=== PATIENT | male | born 1970 | race Caucasian/White ===

== ENCOUNTER 2022-11-25 23:57 | Emergency (ER) | payer OTHER ==
[2022-11-26 00:10] LABS: Arterial Blood Carboxyhemoglob 0.9 % (0-1.5); Blood O2 Saturation 87.8 % (92-98.5)
[2022-11-26 00:33] LABS: Absolute Lymphocytes (CBC) 2.4 K/uL (0.7-4.9); Lymphocytes % 40.1 % (15.3-44.8); MCV 86.4 fL (80-100); MPV 7.8 fL (7.6-11.3); RBC Red Blood Cell Count 4.86 M/uL (4.33-5.43)
[2022-11-26 00:49] LABS: Potassium 3.3 mmol/L (3.5-5.1); Troponin High Sensitivity 8.2 pg/mL (<58.9)
--- NOTE | 2022-11-26 02:01 | EDPHYS ---
Physician Documentation [facility] Name: Manoj Romano Age: 51 yrs Sex: Male : 1970 Arrival Date: 11/25/2022 Time: 23:59 Bed 4 Private MD: ED Physician Riley Brown HPI: 11/26 00:37 This 51 yrs old Male presents to ER via EMS with complaints of dyspnea. sp3 00:37 51-year-old male with a history of asthma presents to the ED via EMS for chief sp3 complaint difficulty breathing and possible allergic reaction. Patient states that he was having a normal day when he started having difficulty breathing self medicated with Benadryl. EMS arrived to find patient with 87% pulse oxygenation and started albuterol and Atrovent and also administered 125 mg of Solu-Medrol IV. Arrival to the ED patient had already presumably from the medication and room air pulse ox of 85%. She denies headache, URI symptoms, cough, chest pain, prolonged travel or immobilization, prior history of PE or DVT or hypercoagulable state, abdominal pain, nausea, vomiting, diarrhea, syncope, near syncope, rash, fever, or any other aspect of ROS at this time.. Historical: - Allergies: 00:10 No Known Allergies; bb - Home Meds: 00:10 Albuterol Inhl [Active]; bb - PMHx: 00:10 Asthma; bb - Immunization history:: Client reports having NOT received the Covid vaccine. - Social history:: Smoking status: Patient denies any tobacco usage or history of. ROS: 00:38 Constitutional: Negative for fever, chills, and weight loss, Eyes: Negative for injury, sp3 pain, redness, and discharge, Neck: Negative for injury, pain, and swelling, Abdomen/GI: Negative for abdominal pain, nausea, vomiting, diarrhea, and constipation, Back: Negative for injury and pain, MS/Extremity: Negative for injury and deformity, Skin: Negative for injury, rash, and discoloration, Neuro: Negative for headache, weakness, numbness, tingling, and seizure. 00:38 All other systems are negative. Exam: 00:39 Constitutional: This is a well developed, well nourished patient who is awake, alert, sp3 and in no acute distress. Head/Face: Normocephalic, atraumatic. Eyes: Pupils equal round and reactive to light, extra-ocular motions intact. Lids and lashes normal. Conjunctiva and sclera are non-icteric and not injected. Cornea within normal limits. Periorbital areas with no swelling, redness, or edema. ENT: Nares patent. No nasal discharge, no septal abnormalities noted. External auditory canals are clear. Oropharynx with no redness, swelling, or masses, exudates, or evidence of obstruction, uvula midline. Mucous membranes moist. Neck: Trachea midline, no thyromegaly or masses palpated, and no cervical lymphadenopathy. Supple, full range of motion without nuchal rigidity, or vertebral point tenderness. No Meningismus. Chest/axilla: Normal chest wall appearance and motion. Nontender with no deformity. No lesions are appreciated. Abdomen/GI: Soft, non-tender, with normal bowel sounds. No distension or tympany. No guarding or rebound. No evidence of tenderness throughout. Back: No spinal tenderness. No costovertebral tenderness. Full range of motion. Skin: Warm, dry with normal turgor. Normal color with no rashes, no lesions, and no evidence of cellulitis. MS/ Extremity: Pulses equal, no cyanosis. Neurovascular intact. Full, normal range of motion. Neuro: Awake and alert, GCS 15, oriented to person, place, time, and situation. Cranial nerves II-XII grossly intact. Motor strength 5/5 in all extremities. Sensory grossly intact. Cerebellar exam normal. Normal gait. Psych: Awake, alert, with orientation to person, place and time. Behavior, mood, and affect are within normal limits. 00:39 Cardiovascular: Rate: tachycardic. 00:39 Respiratory: Patient with good air movement and scattered wheezes.. 00:41 ECG was reviewed by the Attending Physician. EKG demonstrates sinus tachycardia at 110 sp3 bpm with normal intervals, normal QRS, normal axis, normal ST/T-segment without evidence of acute ischemia. Vital Signs: 00:05 BP 150 / 91; Pulse 111; Resp 20 S; Temp 98.9(O); Pulse Ox 86% on R/A; Weight 79.38 kg bb (R); Height 5 ft. 10 in. (177.80 cm) (R); Pain 0/10; 00:45 BP 136 / 84; Pulse 103; Resp 18; Pulse Ox 96% on 3 lpm NC; jb4 02:04 BP 134 / 92; Pulse 98; Resp 19; Pulse Ox 93% on R/A; jb4 00:05 Body Mass Index 25.11 (79.38 kg, 177.80 cm) bb MDM: 00:39 Data reviewed: vital signs, nurses notes, EMS record, lab test result(s), EKG, sp3 radiologic studies. ED course: 51-year-old with hypoxia and asthma. Differential diagnosis includes asthma attack, bronchitis, pneumonia, pulmonary embolism, among others. I am not suspicious for metabolic pathology causing A-a gradient. Initial arterial blood gas demonstrates 7.39/44/57 performed on 2 L nasal cannula after arrival. Will obtain laboratory values, CT scan of the chest with PE protocol, continued SAMANTHA treatment, oxygen treatment and general observation. Disposition pending patient course and reevaluation. Possible admission if oxygenation is not improved.. 01:58 ED course: Patient is feeling much improved. Heart rate is in the 95-100 range. Patient sp3 taken off of the nasal cannula oxygen and remains 93% on room air. Patient is not tachypneic and in no respiratory distress. I believe at this time patient had allergy induced asthma as opposed to histamine based allergic reaction and/or anaphylaxis. Patient is asking for EpiPen in case this happens again and he is not in range of hospital. Even though this is not true allergic reaction, I am not posted prescribing this prescription. We will also put patient on 5-day course of prednisone 40 mg daily. Patient has inhaler at home and I have counseled him on proper usage along with a spacer device. Also discussed with will be at home with the patient in case he deteriorates at home although this is very unlikely. Questions answered and patient is now ready for safe discharge.. 02:00 Patient medically screened. sp3 11/26 00:02 Order name: Basic Metabolic Panel sp3 11/26 00:02 Order name: CBC with Diff sp3 11/26 00:02 Order name: NT PRO-BNP sp3 11/26 00:02 Order name: Troponin HS sp3 11/26 00:02 Order name: ABG: VBG please sp3 11/26 00:03 Order name: ABG sp3 11/26 00:02 Order name: XRAY Chest (1 view) sp3 11/26 00:02 Order name: EKG; Complete Time: 00:03 sp3 11/26 00:13 Order name: CT Chest For PE Angio sp3 11/26 00:26 Order name: ABG Arterial Blood Gas; Complete Time: 01:46 EDMS 11/26 00:38 Order name: CBC with Automated Diff EDMS 11/26 00:49 Order name: Basic Metabolic Panel EDMS 11/26 00:49 Order name: Troponin High Sensitivity EDMS 11/26 00:49 Order name: NT PRO-BNP EDMS 11/26 00:02 Order name: Cardiac monitoring; Complete Time: 00:15 sp3 11/26 00:02 Order name: EKG - Nurse/Tech; Complete Time: 00:15 sp3 11/26 00:02 Order name: IV Saline Lock; Complete Time: 00:15 sp3 11/26 00:02 Order name: Labs collected and sent; Complete Time: 00:15 sp3 11/26 00:02 Order name: O2 Per Protocol; Complete Time: 00:15 sp3 11/26 00:02 Order name: O2 Sat Monitoring; Complete Time: 00:15 sp3 Administered Medications: No medications were administered Disposition Summary: 11/26/22 02:00 Discharge Ordered Location: Home sp3 Condition: Stable sp3 Diagnosis - ALLERGY INDUCED ASTHMA, HYPOXIA sp3 Followup: sp3 - With: Private Physician - When: Upon discharge from the Emergency Department - Reason: Continuance of care Discharge Instructions: - Discharge Summary Sheet sp3 - Asthma Attack Prevention, Adult sp3 Forms: - Medication Reconciliation Form sp3 - Thank You Letter sp3 - Antibiotic Education sp3 - Prescription Opioid Use sp3 Prescriptions: - Prednisone 20 mg Oral Tablet - take 2 tablets by ORAL route once daily for 5 days; 10 tablet; Refills: 0, sp3 Product Selection Permitted - epinephrine 0.3 mg/0.3 mL Injection auto-injector - inject 0.3 milliliter by INTRAMUSCULAR route one time as needed for sb4 anaphylaxis; 1 Dual Pack; Refills: 0, Product Selection Permitted - Albuterol Sulfate 2.5 mg /3 mL (0.083 %) Inhalation Solution for Nebulization - inhale 1 unit by NEBULIZATION route every 8 hours As needed; 1 box; Refills: 0, sp3 Product Selection Permitted Signatures: Dispatcher [employer] EDDonya Galveznda, RN RN bb Riley Brown, MD sp3
--- NOTE | 2022-11-26 02:01 | ER ---
Nurse's Notes [facility] Name: Manoj Romano Age: 51 yrs Sex: Male : 1970 Arrival Date: 11/25/2022 Time: 23:59 Bed 4 Private MD: Diagnosis: ALLERGY INDUCED ASTHMA, HYPOXIA Presentation: 11/26 00:05 Chief complaint: EMS states: they were toned out for report of pt with difficulty bb breathing and chest pain. Coronavirus screen: Client presents with at least one sign or symptom that may indicate coronavirus-19. Ebola Screen: No symptoms or risks identified at this time. Initial Sepsis Screen: Does the patient meet any 2 criteria? No. Patient's initial sepsis screen is negative. Does the patient have a suspected source of infection? No. Patient's initial sepsis screen is negative. Risk Assessment: Do you want to hurt yourself or someone else? Patient reports no desire to harm self or others. Onset of symptoms was November 26, 2022. 00:05 Method Of Arrival: EMS: [facility] bb 00:05 Acuity: OTONIEL 2 bb Historical: - Allergies: 00:10 No Known Allergies; bb - Home Meds: 00:10 Albuterol Inhl [Active]; bb - PMHx: 00:10 Asthma; bb - Immunization history:: Client reports having NOT received the Covid vaccine. - Social history:: Smoking status: Patient denies any tobacco usage or history of. Screenin:07 [facility] ED Fall Risk Assessment (Adult) History of falling in the last 3 months, jb4 including since admission No falls in past 3 months (0 pts) Confusion or Disorientation No (0 pts) Score/Fall Risk Level 0 - 2 = Low Risk Oriented to surroundings, Maintained a safe environment. Abuse screen: Denies threats or abuse. Nutritional screening: No deficits noted. Tuberculosis screening: No symptoms or risk factors identified. Assessment: 00:10 General: Appears in no apparent distress. uncomfortable, Behavior is calm, cooperative, jb4 appropriate for age. Pain: Complains of pain in chest and neck Pain does not radiate. Pain currently is 5 out of 10 on a pain scale. Quality of pain is described as Tightness. Neuro: Level of Consciousness is awake, alert, obeys commands, Oriented to person, place, time, situation. Cardiovascular: Heart tones S1 S2 present Patient's skin is warm and dry. Respiratory: Airway is patent Trachea midline Respiratory effort is even, labored, Breath sounds are clear in right upper lobe, left upper lobe, right middle lobe, right lower lobe, left posterior upper lobe, right posterior upper lobe, left posterior lower lobe, right posterior middle lobe and right posterior lower lobe Breath sounds with wheezes in left lower lobe. GI: No signs and/or symptoms were reported involving the gastrointestinal system. : No signs and/or symptoms were reported regarding the genitourinary system. EENT: No signs and/or symptoms were reported regarding the EENT system. Derm: Skin is intact, Skin is pink, warm \T\ dry. Musculoskeletal: Circulation, motion, and sensation intact. Range of motion: intact in all extremities. 00:59 Reassessment: Patient appears in no apparent distress at this time. Patient and/or jb4 family updated on plan of care and expected duration. Pain level reassessed. Patient is alert, oriented x 3, equal unlabored respirations, skin warm/dry/pink. Respiratory: Airway is patent Respiratory effort is even, unlabored, Breath sounds are clear bilaterally. 02:04 Reassessment: Patient appears in no apparent distress at this time. Patient and/or jb4 family updated on plan of care and expected duration. Pain level reassessed. Patient is alert, oriented x 3, equal unlabored respirations, skin warm/dry/pink. Vital Signs: 00:05 BP 150 / 91; Pulse 111; Resp 20 S; Temp 98.9(O); Pulse Ox 86% on R/A; Weight 79.38 kg bb (R); Height 5 ft. 10 in. (177.80 cm) (R); Pain 0/10; 00:45 BP 136 / 84; Pulse 103; Resp 18; Pulse Ox 96% on 3 lpm NC; jb4 02:04 BP 134 / 92; Pulse 98; Resp 19; Pulse Ox 93% on R/A; jb4 00:05 Body Mass Index 25.11 (79.38 kg, 177.80 cm) ED Course: 11/25 23:59 Patient arrived in ED. sb4 11/26 00:00 Riley Brown MD is Attending Physician. sp3 00:07 Sergey Avila, KIM is Primary Nurse. jb4 00:07 Patient has correct armband on for positive identification. Bed in low position. Call jb4 light in reach. Side rails up X 1. Client placed on continuous cardiac and pulse oximetry monitoring. NIBP monitoring applied. night monitor on. 00:10 Triage completed. bb 00:10 Arm band placed on Patient placed in an exam room, on a stretcher, on oxygen, on bb cafeteria monitor, on pulse oximetry. 00:15 Basic Metabolic Panel Sent. rv1 00:15 CBC with Diff Sent. rv1 00:15 NT PRO-BNP Sent. rv1 00:15 Troponin HS Sent. rv1 02:15 No provider procedures requiring assistance completed. IV discontinued, intact, jb4 bleeding controlled, No redness/swelling at site. Pressure dressing applied. 02:45 XRAY Chest (1 view) In Process Unspecified. EDMS 02:47 CT Chest For PE Angio In Process Unspecified. EDMS Administered Medications: No medications were administered Medication: 00:07 VIS not applicable for this client. jb4 Outcome: 02:00 Discharge ordered by . sp3 02:15 Discharged to home ambulatory, with family. jb4 02:15 Condition: stable 02:15 Discharge instructions given to patient, family, Instructed on discharge instructions, follow up and referral plans. medication usage, Demonstrated understanding of instructions, follow-up care, medications, Prescriptions given X 3. 02:16 Patient left the ED. jb4 Signatures: Dispatcher [employer] EDMS Inna Hernandez RN RN Sergey Guerra RN RN jb4 Riley Brown MD MD sp3 Hannah Amanda, PAIsabelaC PA-C sb4 Betty Hernandez rv1 Corrections: (The following items were deleted from the chart) 00:12 00:07 General: Appears in no apparent distress. uncomfortable, Behavior is calm, jb4 cooperative, appropriate for age, jb4 00:12 00:07 Pain: Complains of pain in mid-sternal area and neck Pain does not radiate. Pain jb4 currently is 5 out of 10 on a pain scale. jb4 01:01 00:10 Respiratory: Airway is patent Trachea midline Respiratory effort is even, jb4 unlabored, Breath sounds are clear in right upper lobe, left upper lobe, right middle lobe, right lower lobe, left posterior upper lobe, right posterior upper lobe, left posterior lower lobe, right posterior middle lobe and right posterior lower lobe Breath sounds with wheezes in left lower lobe jb4
[2022-11-26 03:25] VITALS: TEMP 98.9
[2022-11-26 03:27] VITALS: BP 134/92; O2SAT 93
--- NOTE | 2022-11-26 10:27 | RAD REPORT ---
EXAM DESCRIPTION: CT - Chest For Pe Angio - 11/26/2022 6:36 am CLINICAL HISTORY: The patient is 52 years old and is Male; DYSPNEA TECHNIQUE: Axial computed tomographic angiography images of the chest with intravenous contrast. T his CT exam was performed using one or more of the following dose reduction techniques: automated e xposure control, adjustment of the mA and/or kV according to patient size, and/or use of iterative re construction technique. MIP reconstructed images were created and reviewed. Oblique reformatted images were created and reviewed. DLP: 346 mGy*cm COMPARISON: Chest radiograph of the same day. FINDINGS: PULMONARY ARTERIES: Limited evaluation due to poor bolus timing. No central pulmonary e mboli. AORTA: No acute findings. No thoracic aortic aneurysm. LUNGS: Unremarkable. No mass. No consolidation. PLEURAL SPACE: Unremarkable. No significant effusion. No pneumothorax. HEART: Unremarkable. No cardiomegaly. No significant pericardial effusion. No evidence of RV dysfunction. BONES/JOINTS: No acute fracture. No dislocation. SOFT TISSUES: Unremarkable. LYMPH NODES: Unremarkable. No enlarged lymph nodes. LIVER: Hepatic steatosis. IMPRESSION: 1. Limited evaluation due to poor bolus timing. No central pulmonary emboli. 2. No acute aortic abnormality. No acute intrathoracic abnormality. 3. Hepatic steatosis. Electronically signed by: Hu Patiño DO 11/26/2022 1:45 AM SUPERVISOR [employer]OND Due to temporary technical issues with the PACS/Fluency reporting system, reports are being signed by the in house radiologists without review as a courtesy to insure prompt reporting. The interpreting radiologist is fully responsible for the content of the report.
--- NOTE | 2022-11-26 10:30 | RAD REPORT ---
EXAM DESCRIPTION: RAD - Chest Single View - 11/26/2022 12:18 am CLINICAL HISTORY: The patient is 52 years old and is Male; DYSPNEA TECHNIQUE: Frontal view of the chest. COMPARISON: No relevant prior studies available. FINDINGS: LUNGS: Unremarkable. No consolidation. PLEURAL SPACE: Unremarkable. No pneumothorax. HEART: Unremarkable. No cardiomegaly. MEDIASTINUM: Unremarkable. BONES/JOINTS: Unremarkable. UPPER ABDOMEN: Unremarkable as visualized. IMPRESSION: No acute cardiopulmonary process. Electronically signed by: Antonia Beth MD 11/26/2022 12:29 AM SOFTWARE VERIFICATION ENGINEER Due to temporary technical issues with the PACS/Fluency reporting system, reports are being signed by the in house radiologists without review as a courtesy to insure prompt reporting. The interpreting radiologist is fully responsible for the content of the report.
--- NOTE | 2022-11-26 18:39 | EKG ---
Test Date: 2022-11-26 Test Time: 00:05:03 Branch Service Leader: RV MEASUREMENT RESULTS: Intervals: Rate: 110 TN: 164 QRSD: 100 QT: 334 QTc: 452 [place]er: P: 71 TN: 164 QRS: 70 T: 60 INTERPRETIVE STATEMENTS: Sinus tachycardia Moderate voltage criteria for LVH, may be normal variant Borderline ECG Compared to ECG 07/12/2015 12:08:02 Sinus rhythm no longer present Electronically Signed On 11-26-22 18:38:11 DISEASE CONTROL INSPECTOR by Cruz Masters
== END 2022-11-26 02:16 | disposition home or self-care (01) ==
LOC: ER 23:57
DX: J45.909 Unspecified asthma, uncomplicated (principal)
CPT/HCPCS: 93005; 85025; 80048; 36415; 84484; 83880; 71275; 71045; 82805; Q9967; 99285